=== PATIENT | female | born 1985 | race African-American/Black ===

== ENCOUNTER 2019-04-24 12:04 | Emergency (ER) | payer SELFPAY ==
[2019-04-24] MEDS ORDERED: Fluorescein Opthalmic Strip ONE (12:27)
[2019-04-24] MEDS ORDERED: Tetracaine 0.5% OPHTH SOLN/PF 4 ML BOT ONE (12:27)
[2019-04-24] MEDS ORDERED: Tobramycin Sulfate 0.3% Ophth Susp 5 ml Bottle ONE (13:00)
== END 2019-04-24 13:02 | disposition home or self-care (01) ==
LOC: BURERS 12:04
DX: H10.9 Unspecified conjunctivitis (principal); F41.9 Anxiety disorder, unspecified; F32.9 Major depressive disorder, single episode, unspecified; F17.210 Nicotine dependence, cigarettes, uncomplicated
CPT/HCPCS: 99283

== ENCOUNTER 2023-02-26 16:16 | Emergency (ER) | payer MEDICAID, OTHER | END 2023-02-26 16:42 | disposition home or self-care (01) | LOC: BURERS 16:16 | DX: K04.7 Periapical abscess without sinus (principal); F17.210 Nicotine dependence, cigarettes, uncomplicated | CPT/HCPCS: 99283 ==